=== PATIENT | female | born 1975 | race African-American/Black ===

== ENCOUNTER 2024-02-21 09:00 | Emergency (ER) | payer MEDICAID ==
[~2024-02-21] VITALS: Ht 167.6 cm; Wt 75.0 kg
[2024-02-21 09:13] VITALS: O2SAT 99
[2024-02-21] MEDS: ACETAMINOPHEN 325MG TABLET PO ONE (10:03)
[2024-02-21] MEDS ORDERED: ACET-2708 MT (11:05)
[2024-02-21] MEDS ORDERED: TRAZ-252 MT (11:09)
[2024-02-21] MEDS ORDERED: ABIL5 MT (11:09)
[2024-02-21 11:20] VITALS: BP 135/91; PULSE 98; RESP 18; TEMP 98.4
== END 2024-02-21 11:25 | disposition home or self-care (01) ==
LOC: ER 09:00
DX: M25.561 Pain in right knee (principal); M25.462 Effusion, left knee
CPT/HCPCS: 73562; 99283

== ENCOUNTER 2024-05-28 03:27 | Emergency (ER) | payer MEDICAID ==
[~2024-05-28] VITALS: Ht 167.6 cm; Wt 64.0 kg
[~2024-05-28 03:27] MED LIST: ABIL5 MT; ACET-2708 MT; TRAZ-252 MT
[2024-05-28 03:30] VITALS: O2SAT 100
[2024-05-28] MEDS ORDERED: HYDR25SU37 RC (04:46)
[2024-05-28 05:10] LABS: HEMATOCRIT 42.1 % (36.0-48.0)
[2024-05-28] MEDS ORDERED: ACETAMINOPHEN 325MG TABLET PO ONE (05:15)
[2024-05-28] MEDS: ACETAMINOPHEN 325MG TABLET PO NR (05:45)
[2024-05-28 05:51] VITALS: BP 101/79; PULSE 90; RESP 20; TEMP 36.55848; O2SAT 99
[2024-05-28] MEDS ORDERED: ACET-2708 MT (05:56)
== END 2024-05-28 06:02 | disposition home or self-care (01) ==
LOC: ER 03:27
DX: K64.8 Other hemorrhoids (principal); Z00.00 Encounter for general adult medical examination without abnormal findings
CPT/HCPCS: 36415; 85014; 85018; 99283